=== PATIENT | female | born 1950 | race Caucasian/White ===

== ENCOUNTER 2020-06-20 16:06 | Emergency (ER) | payer MEDICARE, MEDICAID ==
[~2020-06-20] VITALS: Ht 167.6 cm; Wt 70.0 kg
[2020-06-20] MEDS ORDERED: ONDANSETRON 4MG ODT PO ONE (16:30)
[2020-06-20] MEDS ORDERED: MORPHINE SULFATE 10 MG/ML CPJ IM ONE (16:30)
[2020-06-20] MEDS ORDERED: KETOROLAC 60MG/2ML VIAL IM ONE (16:30)
[2020-06-20] MEDS ORDERED: CYCL10TA7 MT (18:31)
[2020-06-20] MEDS ORDERED: IBUP-2028 MT (18:31)
[2020-06-20 18:58] VITALS: BP 111/51
== END 2020-06-20 19:20 | disposition home or self-care (01) ==
LOC: ER 16:06
DX: M79.18 Myalgia, other site (principal); I10 Essential (primary) hypertension; Z88.0 Allergy status to penicillin; W01.0XXA Fall on same level from slipping, tripping and stumbling without subsequent striking against object, initial encounter; Y93.9 Activity, unspecified; Y92.89 Other specified places as the place of occurrence of the external cause
CPT/HCPCS: 72100; 72170; 73552; 96372; 99284; J1885; J2270; Q0162

== ENCOUNTER 2021-11-05 18:28 | Emergency (ER) | payer OTHER, MEDICAID ==
[~2021-11-05] VITALS: Ht 165.1 cm; Wt 91.0 kg
[~2021-11-05 18:28] MED LIST: CYCL10TA21 MT; IBUP-2028 MT
[2021-11-05] MEDS ORDERED: TRANEXAMIC ACID 1,000 MG/10 ML TP ONE (19:00)
[2021-11-05 19:10] LABS: BASOPHILS % 0.5 % (0.0-2.0); EOSINOPHILS % 1.8 % (0.0-5.0); HEMATOCRIT. 37.6 % (36.0-48.0); HEMOGLOBIN. 12.6 g/dL (12.0-16.0); LYMPHOCYTES % 36.3 % (20.0-50.0); MEAN CORPUSCULAR VOLUME 92.3 fL (81.0-99.0); MEAN PLATELET VOLUME 9.2 fl (7.4-10.4); MONOCYTES % 5.9 % (2.0-8.0); NEUTROPHILS % 55.5 % (40.0-76.0); PLATELET 231 x1000/uL (130-400); RED BLOOD CELL COUNT 4.07 mill/uL (4.2-5.4); RED CELL DISTRIBUTION WIDTH 13.6 % (11.6-14.6)
[2021-11-05 19:15] LABS: CHLORIDE 111 mEq/L (98-107)
[2021-11-05 19:28] LABS: PROTHROMBIN TIME 10.7 sec (9.6-11.0)
[2021-11-05] MEDS ORDERED: SODIUM CHLORIDE 0.9% 1,000 ML IV ONE (21:15)
[2021-11-05] MEDS ORDERED: OXYMETAZOLINE HCL NASAL SPRAY 15ML BOTHNSTRLS SCH (21:15)
[2021-11-05] MEDS ORDERED: OXYM30SP26 BOTHNSTRLS (22:29)
[2021-11-06] MEDS ORDERED: CLINDAMYCIN 600 MG PREMIX 50 ML IV NR (00:15)
[2021-11-06] MEDS ORDERED: CLINDAMYCIN 600 MG in DEXTROSE 5% WATER 50 ML IV ONE (00:15)
[2021-11-06 04:00] VITALS: BP 157/73
== END 2021-11-06 04:46 | disposition short-term general hospital (02) ==
LOC: ER 18:28
DX: R04.0 Epistaxis (principal); E87.6 Hypokalemia; I10 Essential (primary) hypertension; Z88.0 Allergy status to penicillin
CPT/HCPCS: 36415; 71045; 80053; 85025; 85610; 93005; 96361; 96365; 99285; J3490; J7030; J7060